=== PATIENT | female | born 1945 | race African-American/Black ===

== ENCOUNTER 2016-08-28 08:02 | Emergency (ER) | payer OTHER ==
[2016-08-28 09:27] LABS: BASOPHILS 0.3 % (0.0-2.0); EOSINOPHILS 3.6 % (0-7); HEMATOCRIT 39.3 % (36.0-48.0); HEMOGLOBIN 13.3 g/dL (12-16); LYMPHOCYTES 25.9 % (15-50); MCH 29.6 pg (26.0-34.0); MCHC 33.8 g/dL (31.0-37.0); MCV 87.5 fL (80.0-100.0); MEAN PLATELET VOLUME 10.5 fL (7.4-10.4); NEUTROPHILS 64.2 % (40-80); PLATELET COUNT 262 10x3/uL (130-400); RBC 4.49 10x6/uL (4.00-5.40); RDW 13.6 % (11.5-14.5); WBC 5.8 10x3/uL (4.8-10.8)
[2016-08-28 09:39] LABS: ANION GAP 13.1 mmol/L (8-16); CALCIUM 8.6 mg/dL (8.5-10.1); CARBON DIOXIDE 27.8 mmol/L (21.0-32.0); CREATININE - SERUM 1.4 mg/dL (0.6-1.3); POTASSIUM - SERUM 3.9 mmol/L (3.5-5.1)
[2016-08-28 09:41] LABS: INR 0.93 (0.85-1.17); PROTIME 12.3 SECONDS (11.6-15.0)
== END 2016-08-28 11:39 | disposition home or self-care (01) ==
LOC: D.ER 08:02
PROVIDERS: Emergency Medicine
DX: N93.9 Abnormal uterine and vaginal bleeding, unspecified (principal); K21.9 Gastro-esophageal reflux disease without esophagitis; E11.9 Type 2 diabetes mellitus without complications; Z79.4 Long term (current) use of insulin; I10 Essential (primary) hypertension; E78.00 Pure hypercholesterolemia, unspecified; D25.9 Leiomyoma of uterus, unspecified